=== PATIENT | female | born 1965 | race Two or more races ===

== ENCOUNTER 2018-12-11 13:54 | Emergency (ER) | payer MEDICAID ==
[~2018-12-11] VITALS: Ht 152.4 cm; Wt 65.3 kg
--- NOTE | 2018-12-11 14:00 | NUR ---
BIB RA, SYNCOPAL EPISODE WHILE VISITING AT A [facility] HOME. PATIENT ABLE TO TRANSFER FROM WHEELCHAIR TO BED, ABLE TO AMBULATE BUT C/O WEAKNESS. 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 NEEDS ATTENDED. WILL CONTINUE TO MONITOR.
[2018-12-11] MEDS ORDERED: ONDANSETRON HCL/PF 4 MG/2 ML VIAL ONE (14:28)
[2018-12-11] MEDS ORDERED: IV NS 0.9% 1,000 ML BAG IV ONE (14:30)
[2018-12-11] MEDS ORDERED: ONDANSETRON HCL/PF 4 MG/2 ML VIAL IVP ONE (14:30)
[2018-12-11 14:31] LABS: BASOPHILS # (AUTO) 0.1 /CMM (0.0-0.2); BASOPHILS % (AUTO) 0.7 % (0.0-2.0); EOSINOPHILS % (AUTO) 2.3 % (0.0-6.0); HEMATOCRIT 39 % (33-45); LYMPHOCYTES # (AUTO) 2.6 /CMM (0.8-4.8); LYMPHOCYTES % (AUTO) 35.7 % (20.0-44.0); MEAN CORPUSCULAR HGB CONC 33 g/dl (31.0-36.0); MEAN CORPUSCULAR VOLUME 85 fL (82-100); MONOCYTES # (AUTO) 0.6 /CMM (0.1-1.30); NEUTROPHILS # (AUTO) 3.9 /CMM (1.8-8.9); NEUTROPHILS % (AUTO) 53.3 % (43.0-81.0); PLATELET COUNT (AUTO) 259 /CMM (150-450); WHITE BLOOD COUNT (AUTO) 7.4 K/uL (4.3-11.0)
[2018-12-11 14:46] LABS: ALBUMIN 4.2 g/dL (3.4-5.0); BILIRUBIN,DIRECT 0.1 mg/dL (0.0-0.2); BILIRUBIN,TOTAL 0.3 mg/dL (0.2-1.0); CALCIUM, SERUM 9.4 mg/dL (8.5-10.1); CREATININE 0.8 mg/dL (0.6-1.3); POTASSIUM 3.6 mmol/L (3.5-5.1); TOTAL PROTEIN, SERUM 8.3 g/dL (6.4-8.2)
--- NOTE | 2018-12-11 15:40 | NUR ---
PATIENT A/OX4, NO DISTRESS NOTED, MD AT BEDSIDE EXPLAINING DISCHARGE INSTRUCTIONS. PATIENT IN STABLE CONDITION, ABLE TO AMBULATE WITH STEADY GAIT. DENIES DIZZINESS OR HEADACHE AT THIS TIME. NEEDS ATTENDED. IV removed. Catheter intact and site benign. Pressure and 4x4 applied to site. No bleeding noted.Patient discharged to home in stable condition. Written and verbal after care instructions given. Patient verbalizes understanding of instruction.
[2018-12-11 15:49] VITALS: BP 155/94
== END 2018-12-11 16:07 | disposition home or self-care (01) ==
LOC: ER 13:55
DX: R42 Dizziness and giddiness (principal); I10 Essential (primary) hypertension; R55 Syncope and collapse; I51.7 Cardiomegaly; Z98.890 Other specified postprocedural states; Z60.2 Problems related to living alone
CPT/HCPCS: 36415; 70450; 71045; 80048; 80076; 85025; 93005; 96361; 96374; 99284; J2405; J7030